=== PATIENT | female | born 1970 | race Caucasian/White ===

== ENCOUNTER 2017-03-15 20:49 | Emergency (ER) | payer BC ==
[2017-03-15] MEDS ORDERED: POTASSIUM CHLORIDE 20 mEq IN WATER 100ML 100 ML IV ONE ×2 (21:06→21:34)
--- NOTE | 2017-03-15 21:10 | ERPHSYRPT ---
- History of Present Illness Time Seen by Provider: 03/15/17 21:00 Source: patient, family () Physician History: CC: low K Hx: 46 y/o patient of Dr Ricardo with hx of HTN. She is post menopausal. She plans back surgery and had routine pre op labs today showing K 2.5 and normal creat. She takes maxzide. She has had some muscle and legs cramps. No diarrhea. Maybe some fatigue and weakness. No vomiting or diarrhea. No chest pain. Occ flutters in her chest. Severity: mild Allergies/Adverse Reactions: clindamycin Allergy (Verified 03/15/17 21:14) Swelling of Face Home Medications: Amlodipine Besylate 10 mg PO DAILY 11/09/16 [History] Aspirin 81 mg PO DAILY 11/09/16 [History] Bupropion HCl 100 mg PO DAILY 11/09/16 [History] Triamterene/Hydrochlorothiazid [Triamterene-Hctz 75-50 mg Tab] 1 tab PO DAILY [History] - Review of Systems Constitutional: No Symptoms Eyes: No Symptoms Respiratory: No Cough, No Dyspnea Cardiac: Palpitations, No Chest Pain, No Syncope Abdominal/Gastrointestinal: No Abdominal Pain, No Nausea, No Vomiting, No Diarrhea Musculoskeletal: Myalgias Skin: No Rash Neurological: No Focal Weakness, No Headache, No Parasthesia All Other Systems: Reviewed and Negative - Past Medical History Neurological History: Other Cardiac History: Arrhythmia, Hypertension Respiratory History: No Pertinent History Endocrine Medical History: No Pertinent History Musculoskeletal History: Osteoarthritis Other Medical History: 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 - Social History Patient Lives Alone: No (here with family) - Nursing Vital Signs Nursing Vital Signs: Initial Vital Signs Temperature 98.1 F 03/15/17 21:05 Pulse Rate 93 H 03/15/17 21:05 Respiratory Rate 22 03/15/17 21:05 Blood Pressure 149/83 03/15/17 21:05 O2 Sat by Pulse Oximetry 97 03/15/17 21:05 Pain Scale Pain Intensity 6 - Physical Exam General Appearance: alert Eye Exam: PERRL/EOMI Ears, Nose, Throat Exam: normal ENT inspection, moist mucous membranes Neck Exam: normal inspection, non-tender, supple Respiratory Exam: normal breath sounds Cardiovascular Exam: regular rate/rhythm, No murmur Gastrointestinal/Abdomen Exam: soft, No tenderness, No distention Extremity Exam: normal inspection, normal range of motion Neurologic Exam: alert, oriented x 3, cooperative, sensation nml, No motor deficits Skin Exam: warm, dry, No rash - Course Nursing assessment & vital signs reviewed: Yes EKG Interpreted by Me: RATE (79), Sinus Rhythm, NORMAL AXIS, NORMAL INTERVALS ( QTc 443), NORMAL QRS, NORMAL ST-T Ordered Tests: Active Orders 24 hr Category Date Time Status Channel Account Manager STAT Care 03/15/17 21:06 Active EKG-ER Only STAT Care 03/15/17 21:05 Active IV Insertion STAT Care 03/15/17 21:05 Active MAGNESIUM Stat Lab 03/15/17 21:15 Completed Potassium Stat Lab 03/15/17 21:15 Completed Medication Summary Generic Name Dose Route Start Last Admin Trade Name Freq PRN Reason Stop Dose Admin Potassium Chloride 100 mls @ 50 mls/hr 03/15/17 21:06 03/15/17 21:36 Potassium Chloride 20 Meq In Water 100ml IV 03/15/17 23:05 50 mls/hr STAT ONE Administration Sodium Chloride 1,000 mls @ 250 mls/hr 03/15/17 21:15 03/15/17 21:36 Sodium Chloride 0.9% 1000 Ml IV 04/14/17 21:14 250 mls/hr .Q4H CITLALLI Administration Discontinued Medications Generic Name Dose Route Start Last Admin Trade Name Freq PRN Reason Stop Dose Admin Potassium Chloride Confirm 03/15/17 21:34 Potassium Chloride 20 Meq In Water 100ml Administered 03/15/17 21:35 Dose 100 mls @ ud IV .STK-MED ONE Lab/Rad Data: Laboratory Result Diagrams 03/15/17 21:15 Laboratory Results 03/15/17 03/15/17 Range/Units 21:15 21:15 Potassium 3.0 L* (3.5-5.1) mEq/L Magnesium 2.1 (1.8-2.4) mg/dL - Progress Progress Note: 03/15/17 22:07 K rider given. Advised add po K and follow up with Dr Ricardo. Counseled pt/family regarding: lab results, diagnosis, need for follow-up - Departure Time of Disposition: 22:08 Departure Disposition: Home Clinical Impression: Hypokalemia Condition: Stable Critical Care Time: No Referrals: DEMETRIO RICARDO [Primary Care Provider] - Instructions: Hypokalemia Additional Instructions: Rx k-dur twice a day. Continue your normal medications. Follow up with Dr Ricardo next week. Prescriptions: Potassium Chloride [K-Dur] 20 meq PO BID #14 [email or web address].prt
[2017-03-15 21:14] VITALS: O2SAT 97
[2017-03-15] MEDS ORDERED: Sodium Chloride 0.9% 1000 ML 1,000 ML IV SCH (21:15)
[2017-03-15] MEDS ORDERED: Sodium Chloride 0.9% 1000 ML 1,000 ML ONE (21:34)
[2017-03-15 23:25] VITALS: BP 133/75; PULSE 82
== END 2017-03-15 23:43 | disposition home or self-care (01) ==
LOC: ED 20:49
DX: E87.6 Hypokalemia (principal)
CPT/HCPCS: 36000; 36415; 80053; 83735; 84132; 85025; 85610; 85730; 93005; 93041; 96360; 96361; 96365; 96366; 99284; J3480

== ENCOUNTER 2021-04-29 18:22 | Emergency (ER) | payer BC ==
[2021-04-29 18:36] VITALS: BP 172/96; O2SAT 93
[2021-04-29] MEDS ORDERED: Adacel Vial IM ONE ×2 (18:53→18:56)
--- NOTE | 2021-04-29 19:06 | ERPHSYRPT ---
- History of Present Illness Time Seen by Provider: 04/29/21 18:30 Source: patient Exam Limitations: no limitations Patient Subjective Stated Complaint: PT states "I was hamering something and hammered my finger." Triage Nursing Assessment: Pt presented alert and oriented X 3, skin pwd Pt ambulates with an upright steady gait, able to speak in clear full sentences. pt has wound noted to left index finger. Physician History: 50 years old female [id number] presented to the ER with chief complaint of left index fingertip pain after she accidentally smashed with a hammer while working prior to arrival. There is bleeding on the lateral aspect of nail with associated sharp moderate intensity pain especially with movements and palpation. Unsure about tetanus status. Occurred: just prior to arrival Method of Injury: direct blow Quality: sharpness Severity of Pain-Max: moderate Severity of Pain-Current: mild Extremities Pain Location: 2nd finger: left Modifying Factors: Improves With: cold therapy, immobilization. Worsens With: movement Associated Symptoms: none Allergies/Adverse Reactions: clindamycin Allergy (Verified 03/15/17 21:14) Swelling of Face Home Medications: Amlodipine Besylate 10 mg PO DAILY 11/09/16 [History] Triamterene/Hydrochlorothiazid [Triamterene-Hctz 75-50 mg Tab] 1 tab PO DAILY 11/09/16 [History] buPROPion HCL [Bupropion HCl] 100 mg PO DAILY 11/09/16 [History] Atorvastatin Calcium [Lipitor] 10 mg PO DAILY 04/29/21 [History] Hx Tetanus, Diphtheria Vaccination/Date Given: No Hx Influenza Vaccination/Date Given: No Hx Pneumococcal Vaccination/Date Given: No Immunizations Up to Date: Yes Travel Risk - International Travel Have you traveled outside of the country in past 3 weeks: No - Coronavirus Screening Are you exhibiting any of the following symptoms?: No Close contact with a COVID-19 positive Pt in past 14-21 Days: No - Vaccine Status Have you recieved a Covid-19 vaccination: No - Review of Systems Constitutional: No Symptoms Eyes: No Symptoms Ears, Nose, & Throat: No Symptoms Respiratory: No Symptoms Cardiac: No Symptoms Abdominal/Gastrointestinal: No Symptoms Musculoskeletal: Injury Neurological: No Symptoms Endocrine: No Symptoms Hematologic/Lymphatic: No Symptoms Immunological/Allergic: No Symptoms - Past Medical History Pertinent Past Medical History: Yes Neurological History: No Pertinent History Cardiac History: High Cholesterol Respiratory History: No Pertinent History Endocrine Medical History: No Pertinent History Musculoskeletal History: Arthritis Other Medical History: Spondylolisthesis - Past Surgical History Past Surgical History: Yes Female Surgical History: Tubal Ligation, Other Other Surgical History: uterine ablation. spinal fusion - Social History Smoking Status: Current every day smoker How long have you smoked: years Exposure to second hand smoke: Yes Drug Use: none Patient Lives Alone: No (here with family) - Female History Hx Now: No - Nursing Vital Signs Nursing Vital Signs: Initial Vital Signs Temperature 97.9 F 04/29/21 18:28 Pulse Rate 95 H 04/29/21 18:28 Respiratory Rate 20 04/29/21 18:28 Blood Pressure 172/96 04/29/21 18:28 O2 Sat by Pulse Oximetry 93 L 04/29/21 18:28 Pain Scale Pain Intensity 8 - Physical Exam General Appearance: no apparent distress, alert Neck Exam: normal inspection, non-tender, supple Cardiovascular/Respiratory Exam: normal breath sounds, regular rate/rhythm Wrist Exam: normal inspection, non-tender, no evidence of injury, normal ROM Hand Exam: soft tissue tenderness (Left index finger distal phalanx superficial skin lesion on the lateral aspect of nail and minimal oozing from the nailbed. Painful movements at DIP.) Neuro/Tendon Exam: normal sensation, normal motor functions Mental Status Exam: alert, oriented x 3, cooperative SpO2 Interpretation: normal SpO2: 93 O2 Delivery: Room Air Ordered Tests: Active Orders 24 hr Category Date Time Status FINGER(S) Stat Exams 04/29/21 Taken Medication Summary Discontinued Medications Generic Name Dose Route Start Last Admin Trade Name [place] PRN Reason Stop Dose Admin Diphtheria/Tetanus/Acell Pertussis 0.5 ml 04/29/21 18:53 04/29/21 18:57 Tdap --Diph,Pertuss(Acell),Tet Vac/Pf 0.5 Ml Vial IM 04/29/21 18:54 0.5 ml .ONCE ONE Administration Diphtheria/Tetanus/Acell Pertussis Confirm 04/29/21 18:56 Tdap --Diph,Pertuss(Acell),Tet Vac/Pf 0.5 Ml Vial Administered 04/29/21 18:57 Dose 0.5 ml IM .STK-MED ONE - Progress Progress: pain not gone completely Progress Note: 04/29/21 19:17 Finger was cleaned, x-rays did not reveal any obvious fracture reviewed by me. Official report is pending. Superficial skin Is closed with glue. Dressing applied. Recommended Tylenol ibuprofen for pain and outpatient follow-up. Tetanus is updated Counseled pt/family regarding: diagnosis, need for follow-up, rad results - Departure Departure Disposition: Home Clinical Impression: Crushing injury of finger of left hand Condition: Stable Critical Care Time: No Referrals: VANCE VASQUEZ MD [Primary Care Provider] - Follow up/PCP as directed (2 DAYS FOR RE EVALUATION ) Instructions: Finger Fracture (DC) Additional Instructions: TAKE TYLENOL/IBUPROFEN NEEDED, FOLLOW UP WITH PCP FOR REEVALUATION, RETURN FOR INCREASED PAIN , SWELLING/REDNESS/DISCHARGE Prescriptions: Ibuprofen 600 mg PO Q6HPRN PRN 10 Days #20 tablet PRN Reason: Pain
[2021-04-29 19:33] VITALS: PULSE 82
--- NOTE | 2021-04-29 19:43 | XRAY ---
Indication: Pain following hammer injury. Comparison: None 3 view left 2nd finger obtained. No bony, articular, or soft tissue abnormalities.
== END 2021-04-29 19:33 | disposition home or self-care (01) ==
LOC: ED 18:22
DX: S67.191A Crushing injury of left index finger, initial encounter (principal); W20.8XXA Other cause of strike by thrown, projected or falling object, initial encounter; Y93.H3 Activity, building and construction; E78.5 Hyperlipidemia, unspecified; Z72.0 Tobacco use
CPT/HCPCS: 73140; 90471; 90715; 99283